=== PATIENT | male | born 1935 | race Caucasian/White ===

== ENCOUNTER 2019-08-02 15:14 | Emergency (ER) | payer MEDICARE ==
[~2019-08-02] VITALS: Ht 172.7 cm; Wt 90.7 kg
[2019-08-02 15:25] VITALS: Ht 172.7 cm; Wt 90.7 kg
[2019-08-02 17:32] LABS: BASOPHIL % 0.4 % (0-2); PLATELET COUNT 248 x10^3mcL (130-400); RED CELL DISTRIBUTION WIDTH 14.1 % (11.5-14.5)
[2019-08-02 17:43] LABS: CALCIUM 9.4 mg/dL (8.5-10.1); CARBON DIOXIDE 26.1 mmol/L (21-32); CHLORIDE SERUM 108 mmol/L (98-107); CREATININE SERUM 1.2 mg/dL (0.7-1.3); GLUCOSE SERUM 96 mg/dL (74-106); POTASSIUM SERUM 4.4 mmol/L (3.5-5.1); SODIUM SERUM 144 mmol/L (136-145)
[2019-08-02 17:47] LABS: ALBUMIN 3.5 g/dL (3.4-5.0); ALKALINE PHOSPHATASE 85 U/L (46-116); ALT/SGPT 21 U/L (16-63); AST/SGOT 14 U/L (15-37); BILIRUBIN TOTAL 0.42 mg/dL (0.20-1.00); CHOLESTEROL 156 mg/dL (<200); TOTAL PROTEIN, SERUM 7.6 g/dL (6.4-8.2)
[2019-08-02 17:51] LABS: AMPHETAMINE QUAL UR NONE DETECTED (See below)
[2019-08-02 18:56] VITALS: BP 145/78
== END 2019-08-02 18:56 | disposition home or self-care (01) ==
LOC: ED 15:14
PROVIDERS: Specialist
DX: R41.82 Altered mental status, unspecified (principal); I10 Essential (primary) hypertension; E78.5 Hyperlipidemia, unspecified; G89.29 Other chronic pain; M25.511 Pain in right shoulder; Z13.89 Encounter for screening for other disorder; Z86.73 Personal history of transient ischemic attack (TIA), and cerebral infarction without residual deficits; Z98.890 Other specified postprocedural states
CPT/HCPCS: 36415; G0480; Q0092